=== PATIENT | female | born 1965 | race Caucasian/White ===

== ENCOUNTER → 2018-01-03 18:17 | Outpatient (CLI) | payer BC, SELFPAY | PROVIDERS: Family Provider Family Medicine; PCP Family Medicine; Visit Provider Nurse Practitioner Adult Health | DX: N30.20 Other chronic cystitis without hematuria (principal) | CPT/HCPCS: 87077; 87086; 87088; 87186 ==

== ENCOUNTER 2018-03-09 08:17 | Day surgery (SDC) | payer BC, SELFPAY ==
--- NOTE | 2018-03-09 08:17 | DT_ITS ---
This patient was seen during an EMR downtime March 07, 2018 - March 14, 2018. This patient may have a combination of paper and electronic documentation or all paper documentation. All documentation is viewable within the e-chart portion of [facility] for each patient visit.
--- NOTE | 2018-03-09 08:25 | RAD_ITS ---
STUDY: X-RAY - ABDOMEN/PELVIS REASON FOR EXAM: Female, 52 years old. Preoperative evaluation for kidney stone. TECHNIQUE: Single AP view of the abdomen / pelvis. COMPARISON: CT of the abdomen and pelvis dated October 18, 2017 FINDINGS: Normal visualized lung bases. There is an unremarkable bowel gas pattern. There is no demonstrated free abdominal air. The 5 mm x 3 mm calcification projected over the upper pole of the right kidney is identified and is unchanged. Normal soft tissue structures. Normal visualized osseous structures. RAD/Abdomen Single View IMPRESSION: Stable 5 mm x 3 mm calcification projected over the upper pole of the right kidney. No acute pathology. Electronically Signed: Mauro Razo MD at 10:57 EDT , Service support ,
== END 2018-03-09 13:30 | disposition home or self-care (01) ==
LOC: SDC 03-10 11:42
PROVIDERS: Family Provider Family Medicine; PCP Family Medicine; Visit Provider Urology
PROC: (CPT 50590; principal; 2018-03-09 10:10)
DX: N20.0 Calculus of kidney (principal); N30.20 Other chronic cystitis without hematuria; Z79.899 Other long term (current) drug therapy; Z98.84 Bariatric surgery status; F41.9 Anxiety disorder, unspecified; I10 Essential (primary) hypertension; E03.9 Hypothyroidism, unspecified; F32.9 Major depressive disorder, single episode, unspecified; Z87.891 Personal history of nicotine dependence; K21.9 Gastro-esophageal reflux disease without esophagitis
CPT/HCPCS: 00873; 50590; 74018; J7120

== ENCOUNTER → 2018-03-15 09:04 | Outpatient (CLI) | payer BC, SELFPAY ==
--- NOTE | 2018-03-15 09:33 | RAD_ITS ---
STUDY: X-RAY - ABDOMEN/PELVIS REASON FOR EXAM: Female, 52 years old. Flank pain, recent lithotripsy TECHNIQUE: AP supine and upright views of the abdomen and pelvis. COMPARISON: None. FINDINGS: There are punctate calcifications overlying the left renal shadow and some lucent centered phleboliths within the pelvis. There is a moderate amount of colonic fecal material. There is no demonstrated free abdominal air. The visualized liver, spleen and kidneys are grossly normal in size and morphology. Evidence of previous cholecystectomy. There are diffuse degenerative changes of the visualized lumbar spine. RAD/Abdomen Single View IMPRESSION: Likely left nephrolithiasis Retained stool Electronically Signed: Srikanth Nicole MD at 10:51 EDT , Service support ,
== END ==
LOC: RAD.FUTURE 09:05 → RAD 09:07
PROVIDERS: Family Provider Family Medicine; PCP Family Medicine; Visit Provider Nurse Practitioner Adult Health
DX: N20.0 Calculus of kidney (principal)
CPT/HCPCS: 74018

== ENCOUNTER → 2018-03-15 15:45 | Outpatient (CLI) | payer BC, SELFPAY | PROVIDERS: Visit Provider Nurse Practitioner Adult Health | DX: R82.99 Other abnormal findings in urine (principal) | CPT/HCPCS: 87077; 87086; 87088; 87186 ==

== ENCOUNTER → 2020-03-14 | Outpatient (CLI) | payer BC, SELFPAY ==
--- NOTE | 2020-03-14 09:46 | RAD_ITS ---
STUDY: X-RAY - ABDOMEN/PELVIS REASON FOR EXAM: Female, 54 years old. RT SIDE ABD PAIN. HX K.S. TECHNIQUE: Single AP view of the abdomen / pelvis. COMPARISON: Comparison is made with prior study dated March 15, 2018. FINDINGS: Normal visualized lung bases. There is an abundance of fecal material throughout the colon. The visualized liver, spleen and kidneys are grossly normal in size and morphology. There are calcified phleboliths in the pelvis. There are diffuse degenerative changes of the visualized lumbar spine. Prior cholecystectomy. RAD/Abdomen Single View IMPRESSION: Large amount of fecal material is seen in the colon. Electronically Signed: Eric Thao, at 15:26 EDT , Service support ,
== END | disposition home or self-care (01) ==
PROVIDERS: PCP Family Medicine; Referring Provider Urology; Visit Provider Urology
DX: N39.0 Urinary tract infection, site not specified (principal); R10.9 Unspecified abdominal pain
CPT/HCPCS: 74018; 87077; 87086; 87088; 87186